=== PATIENT | male | born 1965 | race Caucasian/White ===

== ENCOUNTER 2016-09-18 16:37 | Inpatient (IN) | payer OTHER ==
--- NOTE | ~2016-09-18 | OP ---
Record Of Operation [facility] [address] [place]. [address] NAME: EMILY VALENTIN : 67 STATUS : ADM IN [facility]#: [id number] AGE: 51 ADM/REG DATE : 09/18/16 MR#: [id number] REPORT SERV DATE: 09/20/16 DICTATED BY: LIZETTE UGALDE III DATE: 09/20/16 REPORT STATUS : Draft TRANSCRIBED BY: MODL DATE: 09/20/16 DATE OF PROCEDURE: 09/20/2016 PREOPERATIVE DIAGNOSIS: Colon cancer with need for subclavian vein Port-A-Cath placement. POSTOPERATIVE DIAGNOSIS: Colon cancer with need for subclavian vein Port-A-Cath placement. PROCEDURE: Right subclavian vein Port-A-Cath placement with fluoroscopy. SURGEON: Lizette Ugalde M.D. ANESTHESIA: General with intubation. COMPLICATIONS: None. ESTIMATED BLOOD LOSS: Less than 5 mL. SPECIMENS: None. DRAINS: None. LAP AND SPONGE COUNT: Correct x3. BRIEF HISTORY: This 51-year-old male has a history of a left colon cancer. He is status post appropriate surgical treatment and it was felt that Port-A-Cath placement was indicated to allow for chronic IV access for chemotherapy, per the request of his medical oncologist. This procedure, the risks, benefits, and alternatives, including not limited to the risk for bleeding, infection, pneumothorax, air embolus, pericardial tamponade, failure of the port to function, infection of the port, or subclavian vein thrombosis requiring removal of the port, dislodgement of the Port-A-Cath tubing requiring extraction, and unforeseen complications including deep venous thrombosis, pulmonary embolus, myocardial infarction, stroke, pneumonia, and , were fully explained to the patient and the family prior to surgery. His questions were answered. He understood the risks and agreed to the surgery as planned. DESCRIPTION OF PROCEDURE: After being properly identified and after discussing risks of surgery with him again in the preoperative area, he was taken to the operating room and placed in the supine position on the operating room table. General anesthesia was administered. He was intubated without difficulty. The upper chest and neck areas were prepped and draped sterilely in the usual fashion. After an appropriate "time-out" per JCAHO standards, an 18-gauge needle was used to identify the right subclavian vein. The vein was identified on the first pass of the needle. A guidewire was passed through the needle and the needle was removed. Fluoroscopy was performed, confirming the tip of the guidewire to be in the correct position with the superior vena cava. The Port-A-Cath tubing and housing were assembled and flushed with a heparin solution and the tubing cut to the appropriate length. The introducer was then placed over the guidewire. The guidewire and Record Of Operation [facility] [address] [facility] [place]. [address] NAME: EMILY VALENTIN : 67 STATUS : ADM IN PAT#: [id number] AGE: 51 ADM/REG DATE : 09/18/16 MR#: [id number] REPORT SERV DATE: 09/20/16 DICTATED BY: LIZETTE UGALDE III DATE: 09/20/16 REPORT STATUS : Draft TRANSCRIBED BY: LORETTA DATE: 09/20/16 inner dilator were removed. The Port-A-Cath tubing was then placed through the sheath as the sheath was peeled away. This went very smoothly. The Port-A-Cath housing was positioned in the infraclavicular pocket. Repeat fluoroscopy was performed, confirming the tip of the Port-A-Cath tubing to be in the correct position of the superior vena cava. The port was accessed with a Austin needle. It was noted to flush easily and flushed with heparinized and was noted to withdraw blood easily. Hemostasis was assured. The port was secured to the chest wall with 2-0 silk sutures. The subcutaneous tissue was closed with a running 3-0 Vicryl suture. The skin was closed with running subcuticular 4-0 Monocryl stitch. The incision was injected with 0.5% Marcaine. The port was accessed with a Austin needle. Dressings were applied. Anesthesia was reversed. The patient was taken to the Recovery Room in stable condition. He tolerated the procedure well. His family was informed results of surgery. Chest x-ray is pending at this time. The patient will remain in the hospital for care regarding his small bowel obstruction and because of his need to begin chemotherapy today. RADHA/LORETTA Lizette Ugalde III, M.D. / [id number] CC: Hardeep Servin III
--- NOTE | ~2016-09-18 | DS ---
Discharge Summary [facility] [address] [place]. [address] NAME: EMILY VALENTIN : 67 STATUS : DIS IN PAT#: [id number] AGE: 51 ADM/REG DATE : 09/18/16 MR#: [id number] REPORT SERV DATE: 10/01/16 DICTATED BY: LIZETTE UGALDE III DATE: 09/30/16 REPORT STATUS : Draft TRANSCRIBED BY: LORETTA DATE: 09/30/16 Data Collection from hospitalization DISCHARGE DIAGNOSES: 1. Colon cancer with need for subclavian vein Port-A-Cath placement. 2. Hypertension. 3. Diabetes mellitus. 4. Hypercholesterolemia. 5. Gastroesophageal reflux disease. 6. History of cirrhosis. CONSULTATIONS: Yousuf Whitaker M.D. PROCEDURES PERFORMED: 1. Right subclavian vein Port-A-Cath placement with fluoroscopy 09/20/2016. 2. CT scan of the abdomen and pelvis without contrast, 09/18/2016. DISCHARGE MEDICATIONS: Aspirin 81 mg at bedtime, Invokana 100 mg daily, vitamin B12 7500 mcg sublingually daily, Cardizem CD 240 mg daily, Colace 200 mg at bedtime, Trulicity 1.5 mg on Sundays as instructed, fenofibrate 160 mg daily, ferrous sulfate 650 mg at bedtime, folic acid 800 mcg daily, Constulose 30 mL twice a day, fish oil 1000 mg at bedtime, Prilosec 20 mg daily, Percocet 5/325 one tablet at bedtime, Actos 15 mg daily, Pravachol 20 mg at bedtime, zinc 100 mg at bedtime. CONDITION AT DISCHARGE: Stable. DISPOSITION: The patient was discharged home on a soft diet with activities as instructed. He will follow up with Dr. Ignacio Dejesus, 09/28/2016. He will follow up with ga, 10/19/2016. HOSPITAL COURSE: This is a 51-year-old man who presented to the hospital emergently with evidence for small bowel obstruction. He complained of a one-day history of crampy, diffuse abdominal pain associated with nausea and vomiting. These symptoms began on the day prior to this admission. The patient presented to the emergency room and was found to have radiographic and clinical evidence for small bowel obstruction. An NG tube was placed. The patient was admitted to the hospital at this time for further evaluation and treatment. Upon admission, the patient stated he was doing better. Electrolytes were unremarkable. Liver enzymes were unremarkable. A CT scan of the abdomen and pelvis showed evidence for partial small bowel obstruction. There was no evidence for acute surgical intervention needed at this time. He was scheduled to begin chemotherapy after Port-A-Cath placement which had been scheduled for the following day. The patient cancer's is T1, N1a. Parenteral fluids were started as well as bowel rest and NG suction. On the 09/20/2016, the patient was taken to the operating room where he underwent the above-mentioned procedure. He tolerated this well. There were no complications. He was seen by Dr. Yousuf Whitaker. The patient was feeling better. He had a bowel movement. He had no nausea or vomiting. We Discharge Summary [address] [address] NAME: EMILY VALENTIN : 67 STATUS : DIS IN PAT#: [id number] AGE: 51 ADM/REG DATE : 09/18/16 MR#: [id number] REPORT SERV DATE: 10/01/16 DICTATED BY: LIZETTE UGALDE III DATE: 09/30/16 REPORT STATUS : Draft TRANSCRIBED BY: MODJose Francisco DATE: 09/30/16 were going to postpone beginning his chemotherapy until he was out of the hospital, adjuvant chemotherapy has been planned. Repeat KUB was going to be performed. His diet was advanced. Discharge planning was performed. KUB showed some improvement of the partial small bowel obstruction. He said he was feeling better. On 09/22/2016, he did have some nausea and vomiting following his lunch. His lungs were clear. He had normal respiratory effort. He had multiple bowel movements. He denies any abdominal pain, nausea, or vomiting. His incision was healing well. Discharge instructions were given. Due to his improved and stable condition, he was discharged home with the above-stated instructions. Information collected by: Vale Ahn I submit the above information as my discharge summary. PARKER/LORETTA Lizette Ugalde III, M.D. / [id number] CC: Hardeep eSrvin III, III, M.D.
--- NOTE | ~2016-09-18 | HP ---
History And Physical [id number] [place]. [address] NAME: EMILY VALENTIN : 67 STATUS : ADM IN [facility]#: [id number] AGE: 51 ADM/REG DATE : 09/18/16 MR#: [id number] REPORT SERV DATE: 09/19/16 DICTATED BY: LIZETTE UGALDE III DATE: 09/19/16 REPORT STATUS : Draft TRANSCRIBED BY: MODJose Francisco DATE: 09/19/16 DATE OF ADMISSION: 09/18/2016 HISTORY OF PRESENT ILLNESS: This 51-year-old male was admitted to the hospital emergently with evidence for small bowel obstruction. The patient complains of 1-day history of crampy, diffuse abdominal pain associated with nausea and vomiting. These symptoms began yesterday. The patient presented to the emergency room and was found to have radiographic and clinical evidence for small bowel obstruction. An NG tube was placed. The patient was admitted to the hospital. He states that he feels better this morning. The patient has a history of poorly differentiated left colon cancer. He is status post left colectomy which was performed on 08/18/2016. His postop recovery was uneventful. 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 PAST MEDICAL HISTORY: 1. 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 The patient has massive intraabdominal varies found at the time of surgery. 2. History of left colon cancer, status post left colectomy approximately one month ago as above. 3. Hypertension. 4. Diabetes mellitus. 5. Hypercholesterolemia. 6. Gastroesophageal reflux disease. MEDICATIONS: Aspirin, Invokana, vitamin B12, Cardizem, Colace, fenofibrate, iron, folic acid, lactulose, vitamins, Prilosec, Percocet, Actos, Pravachol, zinc, Trulicity. ALLERGIES: NONE. PAST SURGICAL HISTORY: Includes left colectomy, cholecystectomy, and appendectomy. FAMILY HISTORY: Positive for 2 uncles with colon cancer. SOCIAL HISTORY: No history of tobacco or alcohol use. REVIEW OF SYSTEMS: The patient's 14-point review of systems otherwise unremarkable. PHYSICAL EXAMINATION: GENERAL: This is a male, in no acute distress. He is somewhat obese. He is alert and oriented x3. VITAL SIGNS: Blood pressure 146/73, temperature 97.9. HEENT: Unremarkable. Cranial nerves 2 through 12 were normal. History And Physical [address] [address] NAME: EMILY VALENTIN : 67 STATUS : ADM IN [facility]#: [id number] AGE: 51 ADM/REG DATE : 09/18/16 MR#: [id number] REPORT SERV DATE: 09/19/16 DICTATED BY: LIZETTE UGALDE III DATE: 09/19/16 REPORT STATUS : Draft TRANSCRIBED BY: MODJose Francisco DATE: 09/19/16 LUNGS: Clear. CARDIAC: Normal. ABDOMEN: Slightly distended, but soft and nontender. EXTREMITIES: Normal. LABORATORY DATA: Electrolytes are unremarkable. Glucose is 128. Liver enzymes are unremarkable. White blood cell count 6.8, hematocrit 36. CT scan of the abdomen and pelvis which I reviewed shows evidence for a partial small bowel obstruction. ASSESSMENT: 1. 51-year-old male with partial small bowel obstruction, with no evidence for need for acute surgical intervention. 2. Non-insulin diabetes mellitus. 3. Obesity. 4. Hypertension. 5. Hypercholesterolemia. 6. Gastroesophageal reflux disease. 7. Status post recent left colectomy. 8. Left colon cancer, with chemotherapy scheduled to begin tomorrow after Port-A-Cath placement which has been scheduled for tomorrow. The patient's cancer is a T1, N1a. PLAN: The patient has been admitted and started on parenteral fluids, bowel rest, and NG suction. I have explained to the patient that we will try to manage this problem nonoperatively if possible particularly considering his cirrhosis and massive intraabdominal varices. I have explained that if nonoperative management is not possible, then surgical intervention will be required. The patient is scheduled for Port-A-Cath tomorrow. We will proceed with this on this admission. This procedure, the risks, benefits, and alternatives, including not limited to the risk for bleeding, infection, pneumothorax, air embolus, pericardial tamponade, failure of the port to function, infection of the port or subclavian vein thrombosis requiring removal of the port, dislodgement of the Port-A-Cath tubing requiring extraction, and unforeseen complications including deep venous thrombosis, pulmonary embolus, myocardial infarction, stroke, pneumonia, and , have been explained to the patient's . Their questions have been answered. They understand the risks and agreed to surgery as planned. RADHA/LORETTA Lizette Ugalde III, M.D. / [id number] CC: Lizette Ugalde III, M.D. History And Physical [address] [address] NAME: EMILY VALENTIN : 67 STATUS : ADM IN PAT#: [id number] AGE: 51 ADM/REG DATE : 09/18/16 MR#: [id number] REPORT SERV DATE: 09/19/16 DICTATED BY: LIZETTE UGALDE III DATE: 09/19/16 REPORT STATUS : Draft TRANSCRIBED BY: MODL DATE: 09/19/16 NEERU BOSWELL
[2016-09-18 16:01] LABS: BASOPHILS 0.1 %; BASOPHILS ABSOLUTE 0.01 10/3/uL (0.0-0.16); EOSINOPHILS 0.1 %; EOSINOPHILS ABSOLUTE 0.01 10/3/uL (0.0-0.53); HEMATOCRIT 36.9 % (40.0-51.0); HEMOGLOBIN 12.1 g/dL (13.6-17.8); IMMATURE GRANULOCYTES 0.1 %; IMMATURE GRANULOCYTES ABSOLUTE 0.01 10/3/uL (0.0-0.11); LYMPHOCYTES 4.5 %; LYMPHOCYTES ABSOLUTE 0.31 10/3/uL (0.67-4.30); MEAN CORPUS HGB CONC 32.8 g/dL (32.0-36.0); MEAN CORPUSCULAR HEMOGLOB 26.2 pg (26.0-34.0); MEAN CORPUSCULAR VOLUME 79.9 fL (80-100); MONOCYTES 6.6 %; MONOCYTES ABSOLUTE 0.45 10/3/uL (0.21-1.20); NEUTROPHILS 88.6 %; NEUTROPHILS ABSOLUTE 6.04 10/3/uL (2.02-8.40); PLATELET COUNT 85 10/3/uL (150-400); RBC DISTRIBUTION WIDTH 15.2 % (12.0-16.0); RED CELL COUNT 4.62 10/6/uL (4.7-6.1)
[2016-09-18 16:02] LABS: ER CBC TAT 0 Hrs 18 Mins; WHITE BLOOD CELLS 6.8 10/3/uL (4.5-10.5)
[2016-09-18 16:03] LABS: MANUAL DIFF NO %
[2016-09-18 16:04] LABS: A/G RATIO 0.6 (0.7-1.9); ALBUMIN 3.2 G/DL (3.5-5.0); ALKALINE PHOSPHATASE 80 U/L (45-117); BUN (BLOOD UREA NITROGEN) 14 MG/DL (6-23); CALCIUM, SERUM 9.3 MG/DL (8.5-10.4); CHLORIDE, SERUM 105 MMOL/L (96-112); CREATININE 0.98 MG/DL (0.70-1.30); GFR AFRICAN AMERICAN 104 ML/MIN (>=60); GFR NON AFRICAN AMERICAN 90 ML/MIN (>=60); GLOBULIN 5.3 G/DL (2.5-4.1); GLUCOSE, SERUM 128 MG/DL (60-99); SGOT(AST) 34 U/L (5-40); SGPT(ALT) 22 U/L (5-65); SODIUM, SERUM 139 MMOL/L (135-148); TOTAL BILIRUBIN 1.1 MG/DL (0-1.2); TOTAL PROTEIN 8.5 G/DL (6.0-8.5)
[2016-09-18 16:05] LABS: CO2 (CARBON DIOXIDE) 20 MMOL/L (24-34)
[2016-09-18 16:15] LABS: PLATELET ESTIMATE DEC (ADEQUATE)
[2016-09-18 16:17] LABS: GIANT PLATELET RARE
[~2016-09-18 16:37] MED LIST: ACTOS15 PO; FERROUS SULF325 M1 PO; FISH-EPA1000 MG PO; FOLIC ACID400 MC1 PO; INVOKANA100 MG PO; LACTOSE PO; LOFIB160 PO; PERCOCET 7.5/321 TAB PO; PRAVAC PO; PRILO PO; TRULICITY1.5 MG/0.5 SQ; VITAMIN B-122500 MCG SL; ZINC 50 MG PO
[2016-09-18] MEDS ORDERED: LOFIB160 PO (20:27)
[2016-09-18] MEDS ORDERED: PRILO PO (20:27)
[2016-09-18] MEDS ORDERED: CARDCD240 PO (20:27)
[2016-09-18] MEDS ORDERED: ACTOS15 PO (20:27)
[2016-09-18] MEDS ORDERED: PRAVAC PO (20:28)
[2016-09-18] MEDS ORDERED: VITAMIN B-122500 MCG SL (20:28)
[2016-09-18] MEDS ORDERED: FOLIC ACID400 MC1 PO (20:28)
[2016-09-18] MEDS ORDERED: ASAB PO (20:28)
[2016-09-18] MEDS ORDERED: INVOKANA100 MG PO (20:28)
[2016-09-18] MEDS ORDERED: ZINC 50MG OTC PO (20:29)
[2016-09-18] MEDS ORDERED: FERROUS SULF325 M1 PO (20:29)
[2016-09-18] MEDS ORDERED: FISH-EPA1000 MG PO (20:29)
[2016-09-18] MEDS ORDERED: TRULICITY1.5 MG/0.5 SC (20:32)
[2016-09-18] MEDS ORDERED: PERCOCET 7.5/321 TAB PO (20:32)
[2016-09-18] MEDS ORDERED: CONSTULOSE PO (20:32)
[2016-09-18] MEDS ORDERED: DSS PO (20:33)
[2016-09-18 22:52] LABS: WBC (NOT ORDERED) (RFLEX) 0 (0-5)
[2016-09-18 22:58] LABS: ASCORBIC ACID (UR NOT ORDER) NEG (NEG); BILIRUBIN, URINE NEGATIVE (NEG); ER URINALYSIS TAT 0 Hrs 07 Mins; KETONE, URINE 20 MG/DL (NEG); LEUKOCYTE ESTERASE(NOT OR NEG (NEG); NITRITE (URINE) NEG (NEG)
[2016-09-19 06:53] LABS: BASOPHILS 0.4 %; BASOPHILS ABSOLUTE 0.02 10/3/uL (0.0-0.16); EOSINOPHILS 0.9 %; EOSINOPHILS ABSOLUTE 0.05 10/3/uL (0.0-0.53); HEMOGLOBIN 11.3 g/dL (13.6-17.8); IMMATURE GRANULOCYTES 0.2 %; IMMATURE GRANULOCYTES ABSOLUTE 0.01 10/3/uL (0.0-0.11); LYMPHOCYTES ABSOLUTE 0.54 10/3/uL (0.67-4.30); MANUAL DIFF NO %; MEAN CORPUS HGB CONC 32.3 g/dL (32.0-36.0); MEAN CORPUSCULAR HEMOGLOB 26.3 pg (26.0-34.0); MEAN CORPUSCULAR VOLUME 81.6 fL (80-100); MONOCYTES 9.6 %; MONOCYTES ABSOLUTE 0.52 10/3/uL (0.21-1.20); NEUTROPHILS 78.9 %; NEUTROPHILS ABSOLUTE 4.26 10/3/uL (2.02-8.40); PLATELET COUNT 78 10/3/uL (150-400); RBC DISTRIBUTION WIDTH 15.5 % (12.0-16.0); RED CELL COUNT 4.29 10/6/uL (4.7-6.1); WHITE BLOOD CELLS 5.4 10/3/uL (4.5-10.5)
[2016-09-19 07:05] LABS: A/G RATIO 0.6 (0.7-1.9); ALBUMIN 2.8 G/DL (3.5-5.0); ALKALINE PHOSPHATASE 71 U/L (45-117); BUN (BLOOD UREA NITROGEN) 19 MG/DL (6-23); CALCIUM, SERUM 8.7 MG/DL (8.5-10.4); CHLORIDE, SERUM 107 MMOL/L (96-112); CO2 (CARBON DIOXIDE) 23 MMOL/L (24-34); CREATININE 0.94 MG/DL (0.70-1.30); DIRECT BILIRUBIN 0.3 MG/DL (0.0-0.4); GFR AFRICAN AMERICAN 109 ML/MIN (>=60); GFR NON AFRICAN AMERICAN 94 ML/MIN (>=60); GLOBULIN 4.7 G/DL (2.5-4.1); GLUCOSE, SERUM 90 MG/DL (60-99); INDIRECT BILIRUBIN(NOT ORDER) 0.8 MG/DL (0.1-0.9); SGOT(AST) 28 U/L (5-40); SGPT(ALT) 18 U/L (5-65); SODIUM, SERUM 144 MMOL/L (135-148); TOTAL BILIRUBIN 1.1 MG/DL (0-1.2); TOTAL PROTEIN 7.5 G/DL (6.0-8.5)
[2016-09-19 07:20] LABS: PLATELET ESTIMATE DEC (ADEQUATE)
[2016-09-19 07:21] LABS: OVALOCYTES 1+ (3-10/OIF) (0-2/OIF)
[2016-09-19 10:01] LABS: BASOPHILS 0.2 %; BASOPHILS ABSOLUTE 0.01 10/3/uL (0.0-0.16); EOSINOPHILS 1.2 %; EOSINOPHILS ABSOLUTE 0.06 10/3/uL (0.0-0.53); HEMATOCRIT 33.2 % (40.0-51.0); HEMOGLOBIN 10.8 g/dL (13.6-17.8); IMMATURE GRANULOCYTES 0.2 %; IMMATURE GRANULOCYTES ABSOLUTE 0.01 10/3/uL (0.0-0.11); LYMPHOCYTES 10.2 %; LYMPHOCYTES ABSOLUTE 0.52 10/3/uL (0.67-4.30); MEAN CORPUS HGB CONC 32.5 g/dL (32.0-36.0); MEAN CORPUSCULAR HEMOGLOB 26.5 pg (26.0-34.0); MEAN CORPUSCULAR VOLUME 81.4 fL (80-100); MONOCYTES 11.4 %; MONOCYTES ABSOLUTE 0.58 10/3/uL (0.21-1.20); NEUTROPHILS 76.8 %; NEUTROPHILS ABSOLUTE 3.91 10/3/uL (2.02-8.40); PLATELET COUNT 95 10/3/uL (150-400); RBC DISTRIBUTION WIDTH 15.5 % (12.0-16.0); RED CELL COUNT 4.08 10/6/uL (4.7-6.1); WHITE BLOOD CELLS 5.1 10/3/uL (4.5-10.5)
[2016-09-19 10:02] LABS: MANUAL DIFF NO %
[2016-09-19 10:16] LABS: BUN (BLOOD UREA NITROGEN) 21 MG/DL (6-23); CALCIUM, SERUM 8.3 MG/DL (8.5-10.4); CHLORIDE, SERUM 107 MMOL/L (96-112); CO2 (CARBON DIOXIDE) 25 MMOL/L (24-34); CREATININE 0.89 MG/DL (0.70-1.30); GFR AFRICAN AMERICAN 116 ML/MIN (>=60); GFR NON AFRICAN AMERICAN 100 ML/MIN (>=60); GLUCOSE, SERUM 89 MG/DL (60-99); POTASSIUM, SERUM 3.8 MMOL/L (3.5-5.3); SODIUM, SERUM 142 MMOL/L (135-148)
[2016-09-19 10:43] LABS: PLATELET ESTIMATE DEC (ADEQUATE)
[2016-09-19 10:44] LABS: RBC MORPHOLOGY NORM (NORMAL)
[2016-09-20 06:39] LABS: BASOPHILS 0.2 %; BASOPHILS ABSOLUTE 0.01 10/3/uL (0.0-0.16); EOSINOPHILS 1.7 %; EOSINOPHILS ABSOLUTE 0.07 10/3/uL (0.0-0.53); HEMATOCRIT 32.6 % (40.0-51.0); HEMOGLOBIN 10.5 g/dL (13.6-17.8); IMMATURE GRANULOCYTES 0.2 %; IMMATURE GRANULOCYTES ABSOLUTE 0.01 10/3/uL (0.0-0.11); LYMPHOCYTES 11.6 %; LYMPHOCYTES ABSOLUTE 0.48 10/3/uL (0.67-4.30); MEAN CORPUS HGB CONC 32.2 g/dL (32.0-36.0); MEAN CORPUSCULAR HEMOGLOB 26.1 pg (26.0-34.0); MEAN CORPUSCULAR VOLUME 81.1 fL (80-100); MONOCYTES 11.6 %; MONOCYTES ABSOLUTE 0.48 10/3/uL (0.21-1.20); NEUTROPHILS 74.7 %; NEUTROPHILS ABSOLUTE 3.08 10/3/uL (2.02-8.40); PLATELET COUNT 93 10/3/uL (150-400); RBC DISTRIBUTION WIDTH 15.4 % (12.0-16.0); RED CELL COUNT 4.02 10/6/uL (4.7-6.1); WHITE BLOOD CELLS 4.1 10/3/uL (4.5-10.5)
[2016-09-20 06:42] LABS: MANUAL DIFF NO %
[2016-09-20 06:49] LABS: BUN (BLOOD UREA NITROGEN) 20 MG/DL (6-23); CALCIUM, SERUM 8.5 MG/DL (8.5-10.4); CHLORIDE, SERUM 108 MMOL/L (96-112); CO2 (CARBON DIOXIDE) 24 MMOL/L (24-34); CREATININE 0.85 MG/DL (0.70-1.30); GFR AFRICAN AMERICAN 118 ML/MIN (>=60); GFR NON AFRICAN AMERICAN 102 ML/MIN (>=60); POTASSIUM, SERUM 3.6 MMOL/L (3.5-5.3); SODIUM, SERUM 143 MMOL/L (135-148)
[2016-09-20 06:50] LABS: GLUCOSE, SERUM 110 MG/DL (60-99)
[2016-09-20 07:06] LABS: HYPOCHROMIA 1+ (3-10/OIF) (0-2/OIF); PLATELET ESTIMATE DEC (ADEQUATE)
[2016-09-21 03:36] LABS: BASOPHILS 0.3 %; BASOPHILS ABSOLUTE 0.01 10/3/uL (0.0-0.16); EOSINOPHILS 3.8 %; EOSINOPHILS ABSOLUTE 0.13 10/3/uL (0.0-0.53); HEMATOCRIT 31.6 % (40.0-51.0); HEMOGLOBIN 10.2 g/dL (13.6-17.8); LYMPHOCYTES 13.6 %; LYMPHOCYTES ABSOLUTE 0.46 10/3/uL (0.67-4.30); MEAN CORPUS HGB CONC 32.3 g/dL (32.0-36.0); MEAN CORPUSCULAR HEMOGLOB 26.1 pg (26.0-34.0); MEAN CORPUSCULAR VOLUME 80.8 fL (80-100); MONOCYTES 19.2 %; MONOCYTES ABSOLUTE 0.65 10/3/uL (0.21-1.20); NEUTROPHILS 63.1 %; NEUTROPHILS ABSOLUTE 2.14 10/3/uL (2.02-8.40); PLATELET COUNT 91 10/3/uL (150-400); RBC DISTRIBUTION WIDTH 15.4 % (12.0-16.0); RED CELL COUNT 3.91 10/6/uL (4.7-6.1); WHITE BLOOD CELLS 3.4 10/3/uL (4.5-10.5)
[2016-09-21 03:37] LABS: MANUAL DIFF NO %
[2016-09-21 03:51] LABS: CALCIUM, SERUM 8.2 MG/DL (8.5-10.4); CHLORIDE, SERUM 106 MMOL/L (96-112); CO2 (CARBON DIOXIDE) 26 MMOL/L (24-34); GFR AFRICAN AMERICAN 115 ML/MIN (>=60); GFR NON AFRICAN AMERICAN 99 ML/MIN (>=60); GLUCOSE, SERUM 104 MG/DL (60-99); POTASSIUM, SERUM 3.5 MMOL/L (3.5-5.3); SODIUM, SERUM 140 MMOL/L (135-148)
[2016-09-21 03:52] LABS: BUN (BLOOD UREA NITROGEN) 14 MG/DL (6-23)
[2016-09-21 04:45] LABS: ANISOCYTOSIS 1+ (5-10/OIF) (0-5/OIF); PLATELET ESTIMATE DEC (ADEQUATE); POLYCHROMASIA 1+ (2-5/OIF) (0-1/OIF)
[2016-09-22] MEDS ORDERED: ASAB PO (14:24)
[2016-09-22] MEDS ORDERED: CARDCD240 PO (14:25)
== END 2016-09-22 15:40 | disposition home or self-care (01) | DRG 389 ==
LOC: ER 16:37 → 4EA 20:33
PROVIDERS: Emergency Medicine; Surgery
PROC: B5161ZA Fluoroscopy of Right Subclavian Vein using Low Osmolar Contrast, Guidance (ICD-10-PCS; 2016-09-20)
PROC: 05H533Z Insertion of Infusion Device into Right Subclavian Vein, Percutaneous Approach (ICD-10-PCS; principal; 2016-09-20 06:45)
DX: K56.60 Unspecified intestinal obstruction (principal); C18.6 Malignant neoplasm of descending colon; K74.60 Unspecified cirrhosis of liver; I10 Essential (primary) hypertension; K21.9 Gastro-esophageal reflux disease without esophagitis; E11.9 Type 2 diabetes mellitus without complications; E78.00 Pure hypercholesterolemia, unspecified
CPT/HCPCS: 71010; 74000; 74020; 74176; 76000; 80048; 80053; 81001; 82248; 82962; 83690; 85025; 93005; 96374; 96375; 96376; 99285; A9270-GY; C1751; C9113; J0330; J0690; J1170; J2250; J2405; J2550; J3010